=== PATIENT | male | born 1950 | race Caucasian/White ===

== ENCOUNTER → 2018-10-27 | Outpatient (CLI) | payer MEDICARE ==
--- NOTE | 2018-10-27 11:08 | XR ---
EXAMINATION TYPE: XR KUB DATE OF EXAM: 10/27/2018 10:41 AM CLINICAL HISTORY: Left-sided kidney stone for one month. TECHNIQUE: 2 supine KUB images of the abdomen are obtained. COMPARISON: None. FINDINGS: No definitive nephrolithiasis. Vascular calcification throughout the abdomen mimics renal c alculi. Scattered gas is seen in non-distended small bowel loops. Gas and fecal material is seen in non-diste nded colon. Vascular calcification overlies the mid to lower abdomen. There is elevated left hemidiap hragm with small left pleural effusion visualized osseous structures are intact. IMPRESSION: Poor visualization of nephrolithiasis. Consider CT.
== END | disposition home or self-care (01) ==
LOC: RADXRMAIN 10:25
PROVIDERS: ATTEND Urology
DX: N20.0 Calculus of kidney (principal)
CPT/HCPCS: 74018

== ENCOUNTER 2021-03-08 07:46 | Inpatient (IN) | payer MEDICARE ==
[2021-03-04 09:41] VITALS: BMI 22.6
[~2021-03-08 07:46] MED LIST: DEXAMETHASONE SOD PHOSPHATE 4 MG/ML 1 ML VIAL IV ONE; MIDAZOLAM 2 MG/2 ML VIAL IV PRN; ONDANSETRON 4 MG/2 ML VIAL IVP ONE; SODIUM CHLORIDE 0.9% 1,000 ML in EMPTY BAG 1 BAG IV ONE
[2021-03-08 08:52] LABS: African American GFR (CKD) >90 (>60 ml/min/1.73 sqM); Anion Gap 7 mmol/L; Blood Urea Nitrogen 15 mg/dL (9-20); Calcium 9.8 mg/dL (8.4-10.2); Carbon Dioxide 24 mmol/L (22-30); Chloride 108 mmol/L (98-107); Glucose 113 mg/dL (74-99); Non-African American GFR(CKD) >90 (>60 ml/min/1.73 sqM); Sodium 139 mmol/L (137-145)
[2021-03-08 09:00] LABS: Basophils % (A) 0 %; Eosinophils # (A) 0.1 k/uL (0-0.7); Eosinophils % (A) 1 %; HCT 49.7 % (39.0-53.0); HGB 16.3 gm/dL (13.0-17.5); Lymphocytes % (A) 13 %; MCH 35.7 pg (25.0-35.0); MCHC 32.8 g/dL (31.0-37.0); MCV 108.9 fL (80.0-100.0); Macrocytosis Marked; Mean Platelet Volume 8.7; Monocytes # (A) 0.8 k/uL (0-1.0); Monocytes % (A) 10 %; Neutrophils % (A) 75 %; Platelet Count 224 k/uL (150-450); RBC 4.57 m/uL (4.30-5.90); RDW 14.5 % (11.5-15.5); WBC 8.1 k/uL (3.8-10.6)
[2021-03-08] MEDS ORDERED: PROPOFOL 10 MG/ML 20 ML VIAL IV ONE (10:05)
[2021-03-08] MEDS ORDERED: SUCCINYLCHOLINE CHLORIDE 100 MG/5 ML SYR IV ONE (10:05)
[2021-03-08] MEDS ORDERED: LIDOCAINE 1% INJ 10MG/ML (20 ML MDV) ONE (10:05)
[2021-03-08] MEDS ORDERED: ROCURONIUM 10 MG/ML (5 ML VIAL) IV ONE (10:05)
[2021-03-08] MEDS ORDERED: MIDAZOLAM 2 MG/2 ML VIAL ONE (10:05)
[2021-03-08] MEDS ORDERED: fentaNYL (PF) 50 MCG/ML 2 ML AMP ONE (10:05)
[2021-03-08] MEDS ORDERED: LACTATED RINGERS 1,000 ML IV ONE (11:42)
[2021-03-08] MEDS ORDERED: IOPAMIDOL-250 100ML BTL INTRAARTER ONE (11:57)
[2021-03-08] MEDS ORDERED: IOPAMIDOL-250 50ML BTL INTRAARTER ONE (11:58)
--- NOTE | 2021-03-08 12:16 | P.OP ---
Description of Procedure: Date: 03/08/2021 Preoperative diagnosis: Asymptomatic Infrarenal 5.8 cm AAA Postoperative diagnosis: Same Procedure: 1. Percutaneous Endovascular aortic repair with Stuart device. 2. Ultrasound-guided bilateral common femoral artery access Surgeon: Saleem DUPONT Anesthesia: General Estimated blood loss: 50 mL Complications: None Condition: Stable Disposition: Multiphasic DP and PT signals Indications: 70-year-old gentleman with history of infrarenal AAA presents to the [facility] for endovascular aortic repair after his aneurysm has increased in size to 5.8 cm. Operative narrative: After written and informed consent was obtained from the patient all risks benefits and complications were described the patient was brought to the [facility] and laid in a supine position. The area of the groins were prepped and draped in usual sterile fashion after appropriate anesthetic was performed per the anesthesiologist. A timeout was performed in normal fashion and antibiotics were administered prior to incisions. Utilizing ultrasound bilateral common femoral arteries were visualized demonstrating patency with minimal calcification. Under ultrasound guidance utilizing a multipurpose needle bilateral common femoral arteries were accessed and guidewire was placed followed by deployment of 2 Perclose closure devices for each femoral artery. Utilizing Seldinger technique and 8-Panamanian sheath was then placed and patient was administered heparin and followed with ACTs. 035 Glidewire was then placed up the right femoral sheath and exchanged for a Lunderquist wire through an angled glide catheter. The left femoral artery was then utilized and guidewire was placed followed by pigtail catheter and aortogra m was obtained. Utilizing the Lunderquist wire a 26 mm main body device was then loaded over the guidewire after the 8-Panamanian sheath was removed. Delivery system was then placed 1 cm proximal to the intended landing site and the aortic body was oriented for appropriate access for the contralateral limb. Delivery system was then retracted out of the sheath and the aortic body radiopaque markers were verified to be in the correct position. First segment of the graft was then deployed in normal fashion by releasing and pulling the knob in normal fashion. Balloon injection port was then inflated utilizing a 4-1 saline contrast mixture in order to open the mid crown. Balloon was then deflated. Precise positioning was then performed with utilizing the radiopaque markers and parallax was removed and our to land at the renal arteries. Pigtail catheter was then retracted away from the proximal stent and the proximal stent was released in normal fashion. Polymer was then utilized and filled through the polymer port which was visualized under fluoroscopy. The stiff Lunderquist wire was then retracted within the ipsilateral limb. Attention was then placed to accessing the contralateral limb. Utilizing the Glidewire and angled glide catheter the contralateral limb was accessed and pigtail catheter was placed. Pigtail catheter was then spun to verify intragraft cannulation. A stiff wire was then placed within the pigtail catheter and retrograde angiogram was obtained demonstrating the internal iliac artery takeoff. Measurements were obtained and a 10 x 160 mm Ovation limb was chosen to be deployed and deployed in normal fashion. Once completed the aortic main body was completely deployed in normal fashion. Utilizing the balloon balloon angioplasty was performed at the ring to further mold the polymer to the aortic neck. Once completed the aortic body deployment sheath was removed in normal fashion. Pigtail catheter was then placed over the Lunderquist wire and retrograde angiogram was obtained with measurements to the internal iliac artery on the ipsilateral limb. A 10 x 140 mm Ovation limb was chosen and deployed in normal fashion. Once completed two 12 x 40mm balloons were placed up each iliac limb and balloon angioplasty was performed through its entirety. Once completed balloons were removed and pigtail catheter was placed above the graft and final angiogram was obtained demonstrating exclusion of the aneurysm with no evidence of type I or type III endoleak's. There was evidence of a type II endoleak coming from the distal lumbar at the bifurcation. Multiple angles were obtained as well as an angiogram through the graft demonstrating no evidence of a type I or type III proving a type II endoleak. All guidewires and catheters were then removed and the Perclose closure devices were closed in normal fashion. The right Perclose suture broke and therefore an 8-Panamanian Angio-Seal was utilized. The areas were then cleansed and dressings were placed. The patient tolerated procedure well and had multiphasic signal DP and PT and was sent to PACU for recovery.
[2021-03-08] MEDS: HYDROmorphone 0.5 MG/0.5 ML SYRINGE IVP PRN ×4 (12:31→13:40)
[2021-03-08 12:52] LABS: Basophils % (A) 0 %; Eosinophils # (A) 0.1 k/uL (0-0.7); Eosinophils % (A) 1 %; HCT 44.8 % (39.0-53.0); HGB 14.5 gm/dL (13.0-17.5); Lymphocytes # (A) 1.5 k/uL (1.0-4.8); Lymphocytes % (A) 15 %; MCH 35.3 pg (25.0-35.0); MCHC 32.5 g/dL (31.0-37.0); Macrocytosis Marked; Mean Platelet Volume 8.8; Monocytes # (A) 0.9 k/uL (0-1.0); Monocytes % (A) 9 %; Neutrophils # (A) 7.2 k/uL (1.3-7.7); Neutrophils % (A) 73 %; Platelet Count 215 k/uL (150-450); RBC 4.12 m/uL (4.30-5.90); RDW 14.5 % (11.5-15.5); WBC 9.9 k/uL (3.8-10.6)
[2021-03-08 13:00] LABS: MCV 108.6 fL (80.0-100.0)
[2021-03-08 13:41] LABS: African American GFR (CKD) >90 (>60 ml/min/1.73 sqM); Anion Gap 6 mmol/L; Blood Urea Nitrogen 14 mg/dL (9-20); Calcium 8.4 mg/dL (8.4-10.2); Carbon Dioxide 22 mmol/L (22-30); Chloride 111 mmol/L (98-107); Glucose 103 mg/dL (74-99); Non-African American GFR(CKD) >90 (>60 ml/min/1.73 sqM); Potassium 4.1 mmol/L (3.5-5.1); Sodium 139 mmol/L (137-145)
[2021-03-08] MEDS ORDERED: HYDROmorphone 1 MG/ML 1 ML SYRINGE ONE (15:56)
[2021-03-08] MEDS ORDERED: PANTOPRAZOLE 40 MG TABLET PO SCH (17:30)
--- NOTE | 2021-03-08 19:25 | P.CONS ---
History of Present Illness - Reason for Consult Consult date: 03/08/21 Medical management Requesting physician: Clint Monge - Chief Complaint AAA repair - History of Present Illness Consultation: This is a 70-year-old patient of Dr. Mcgill. Chronic stable medical conditions include BPH, GERD, hyperlipidemia, peptic ulcer disease kidney stones. During a workup for lung cancer he was discovered to have what AAA. Infrarenal 5.8 cm. Patient today has undergone percutaneous endovascular aortic repair with altered mental device. Estimated blood loss of 50 mL. Postprocedure sitting up in bed. Comfortable. No abdominal pain. Patient long-standing smoker. Denies any respiratory symptoms. No nausea vomiting. Review of systems: GEN.: None EYES: None HEENT: None NECK: None RESPIRATORY: None CARDIOVASCULAR: None GASTROINTESTINAL: Heartburn GENITOURINARY: Decreased urine flow MUSCULOSKELETAL: None LYMPHATICS: None HEMATOLOGICAL: None PSYCHIATRY: None NEUROLOGICAL: None Past medical history to include: GERD, hyperlipidemia, prostate disorder, peptic ulcer disease, 5.8 cm aortic aneurysm, kidney stones Social history: Has been smoking for 55 years up to 2 packs a day, now down to half a pack a day. No alcohol. Marijuana questionably. Lives with his brother Physical examination: VITAL SIGNS: 97, 52, 16, 1 25 x 55, 98% on 2 L GENERAL: BMI 21.4, sitting up in bed, comfortable. EYES: Pupils equal. Conjunctiva normal. HEENT: External appearance of nose and ears normal, oral cavity grossly normal. NECK: JVD not raised; masses not palpable. HEART: First and second heart sounds are normal; no edema. LUNGS: Respiratory rate normal; decreased breath sounds. ABDOMEN: Soft, nontender, liver spleen not palpable, no masses palpable. PSYCH: Alert and oriented x3; mood and affect normal. NEUROLOGICAL: Cranial nerves grossly intact; no facial asymmetry, power and sensation grossly intact. LYMPHATICS: No lymph nodes palpable in the axilla and neck INVESTIGATIONS, reviewed in the clinical context: WBC 9.9 hemoglobin 14.5 platelets 215 potassium 4.1 creatinine 0.6 Coronavirus [PCR]-not detected Assessment and plan: -Asymptomatic abdominal aortic aneurysm 5.8 cm repaired with an endovascular stent -GERD -Hyperlipidemia Continue Lipitor -BPH Continue Flomax -Kidney stones currently asymptomatic Follow clinically -Chronic nicotine dependence patient is a cigarette smoker Nicotine patch 14 g Care was discussed with the patient. Questions answered. When discharge patient should follow up with Dr. Mcgill Thank you Dr. 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", hx ulcers, aortic aneurysm, hx kidney stones History of Any Multi-Drug Resistant Organisms: None Reported Past Surgical History: Hernia Repair, Orthopedic Surgery, Tonsillectomy Additional Past Surgical History / Comment(s): SURGERY ON LT HAND- FINGERS(ACCIDENT WITH [employer]), TENDON REPAIR LT HAND, left carotid endar terectomy, Past Anesthesia/Blood Transfusion Reactions: Previous Problems w/ Anesthesia Additional Past Anesthesia/Blood Transfusion Reaction / Comm: fluctuating bp and heart rate post op after carotid surgery-ended up in ICU Smoking Status: Current every day smoker - Past Family History Mother Family Medical History: My[place] Infar[place] Additional Family Medical History / Comment(s): [place] Father Family Medical History: Myocardial Infarction ([place]) Additional Family Medical History / Comment(s): [facility] X 3- [facility] Medications and Allergies Home Medications Medication Instructions Recorded Confirmed Type Atorvastatin [Lipitor] 40 mg PO DAILY 12/11/15 03/08/21 History Clopidogrel [Plavix] 75 mg PO DAILY 12/11/15 03/04/21 History Omeprazole [PriLOSEC] 20 mg PO Q48H 12/11/15 03/08/21 History Multivitamins, Thera [Multivitamin 1 tab PO DAILY 03/04/21 03/08/21 History (formulary)] Tamsulosin [Flomax] 0.4 mg PO Q48H 03/04/21 03/08/21 History Allergies Allergy/AdvReac Type Severity Reaction Status Date / Time aspirin AdvReac GETS Verified 03/04/21 09:22 REFLUX AND GI BLEEDING Physical Exam Vitals: Vital Signs Temp Pulse Resp BP BP Pulse Ox 03/08/21 15:50 70 16 138/70 95 03/08/21 15:35 50 L 16 131/61 100 03/08/21 15:00 48 L 16 130/65 99 03/08/21 14:30 61 16 122/66 96 03/08/21 14:15 52 L 16 125/55 98 03/08/21 14:00 59 L 16 123/66 97 03/08/21 13:45 61 16 133/58 96 03/08/21 13:29 67 16 129/61 97 03/08/21 13:19 60 16 119/64 95 03/08/21 12:59 64 16 148/79 94 L 03/08/21 12:47 72 16 148/76 93 L 03/08/21 12:33 76 16 164/85 94 L 03/08/21 12:12 97.0 F L 86 16 144/80 100 03/08/21 08:36 97.9 F 18 119/69 96 Intake and Output 03/08/21 03/08/21 03/08/21 06:59 14:59 22:59 Intake Total 1125 725 Output Total 200 690 Balance 925 35 Intake: IV 1125 500 Intake, IV Titration 225 Amount Sodium Chloride 0.9% 1, 225 000 ml @ 100 mls/hr IV . Q10H MIK Rx#:[id number] Output: Urine 200 450 Urine/Stool Mix 240 Other: Weight 60.2 kg Results CBC & Chem 7: 03/08/21 12:31 03/08/21 13:09 Labs: Abnormal Lab Results - Last 24 Hours (Table) 03/08/21 03/08/21 03/08/21 Range/Units 08:20 08:20 12:31 RBC 4.12 L (4.30-5.90) m/uL MCV 108.9 H 108.6 H (80.0-100.0) fL MCH 35.7 H 35.3 H (25.0-35.0) pg Macrocytosis Marked A Marked A Chloride 108 H (98-107) mmol/L Creatinine 0.64 L (0.66-1.25) mg/dL Glucose 113 H (74-99) mg/dL 03/08/21 Range/Units 13:09 RBC (4.30-5.90) m/uL MCV (80.0-100.0) fL MCH (25.0-35.0) pg Macrocytosis Chloride 111 H (98-107) mmol/L Creatinine 0.60 L (0.66-1.25) mg/dL Glucose 103 H (74-99) mg/dL
[2021-03-08] MEDS: SODIUM CHLORIDE 0.9% 1,000 ML IV SCH ×2 (19:27→20:22)
[2021-03-08] MEDS: LACTATED RINGERS 1,000 ML IV SCH (19:27)
[2021-03-08] MEDS: NICOTINE 14MG/24HR PATCH TRANSDERM SCH (20:22)
[2021-03-08] MEDS ORDERED: PRAVASTATIN SODIUM 40 MG TAB PO SCH (21:00)
[2021-03-08] MEDS: HYDROcodone/APAP 5-325MG 1 EACH TAB PO PRN (22:11)
[2021-03-09] MEDS: HYDROcodone/APAP 5-325MG 1 EACH TAB PO PRN (03:43)
[2021-03-09] MEDS: SODIUM CHLORIDE 0.9% 1,000 ML IV SCH (03:49)
[2021-03-09 04:31] VITALS: RESP 18
[2021-03-09] MEDS: LACTATED RINGERS 1,000 ML IV SCH (06:07)
[2021-03-09] MEDS ORDERED: TAMSULOSIN 0.4 MG CAP.ER.24H PO SCH (07:30)
[2021-03-09] MEDS: NICOTINE 14MG/24HR PATCH TRANSDERM SCH (07:57)
[2021-03-09] MEDS ORDERED: MULTIVITAMINS, THERA 1 EACH TAB PO SCH (09:00)
[2021-03-09] MEDS ORDERED: ATORVASTATIN 40 MG TAB PO SCH (09:00)
[2021-03-09] MEDS ORDERED: CLOPIDOGREL 75 MG TAB PO SCH (09:00)
[2021-03-09 10:13] VITALS: BP 117/58; PULSE 94; TEMP 98.2
--- NOTE | 2021-03-09 10:29 | P.DS ---
Providers Date of admission: 03/08/21 07:46 Attending physician: Clint Monge DO Consults: 03/08/21 05:55 Consult to Anesthesia Routine Consulting Provider: Anesthesia,Services Consult Reason/Comments: General anesthesia for Aortic Stent procedure 03/08/21 13:03 Consult Physician Routine Consulting Provider: Marc Ferrara Consult Reason/Comments: medical management Do you want consulting provider notified?: Yes Primary care physician: [facility] Course: Patient is a 70-year-old male who presented to the hospital on an outpatient basis for a abdominal aortic aneurysm repair that was performed on 03/08/2021. He tolerated the procedure well and is doing very well postoperatively. His vital signs have remained stable. He Armstrong catheter was removed and he is urinating on his own since. He denies any pains, nausea, vomiting or issues otherwise. He appears to be in satisfactory condition for discharge home. Discharge instructions were given and the patient verbalized understanding. He will follow up with his operative surgeon in 10 to 14 days Plan - Discharge Summary Discharge Rx Participant: Yes New Discharge Prescriptions: New Nicotine 14Mg/24Hr Patch [Habitrol] 1 patch TRANSDERM DAILY #14 patch Continue Omeprazole [PriLOSEC] 20 mg PO Q48H Clopidogrel [Plavix] 75 mg PO DAILY Atorvastatin [Lipitor] 40 mg PO DAILY Tamsulosin [Flomax] 0.4 mg PO Q48H Multivitamins, Thera [Multivitamin (formulary)] 1 tab PO DAILY Discharge Medication List Atorvastatin [Lipitor] 40 mg PO DAILY 12/11/15 [History] Clopidogrel [Plavix] 75 mg PO DAILY 12/11/15 [History] Omeprazole [PriLOSEC] 20 mg PO Q48H 12/11/15 [History] Multivitamins, Thera [Multivitamin (formulary)] 1 tab PO DAILY 03/04/21 [History] Tamsulosin [Flomax] 0.4 mg PO Q48H 03/04/21 [History] Nicotine 14Mg/24Hr Patch [Habitrol] 1 patch TRANSDERM DAILY #14 patch 03/09/21 [Rx] Follow up Appointment(s)/Referral(s): Pineda Mcgill MD [Primary Care Provider] - 1 Week Activity/Diet/Wound Care/Special Instructions: Resume regular activity without heavy lifting. Resume regular diet. Resume home medications. May shower starting tomorrow. Follow-up in 10-14 days Discharge Disposition: HOME SELF-CARE
--- NOTE | 2021-03-09 14:35 | P.PN ---
Progress Note - Text Progress Note Date: 03/09/21 - Chief Complaint AAA repair Consultation: This is a 70-year-old patient of Dr. Mcgill. Chronic stable medical conditions include BPH, GERD, hyperlipidemia, peptic ulcer disease kidney stones. During a workup for lung cancer he was discovered to have what AAA. Infrarenal 5.8 cm. Patient today has undergone percutaneous endovascular aortic repair with altered mental device. Estimated blood loss of 50 mL. Today: Laying in bed. Has been up to the bathroom. No abdominal pain. Good oral intake. No chest pain or shortness of breath. Review of systems: Was done for constitutional, cardiovascular, GI, pulmonary. relevant finding as above Current medications reviewed in today's electronic records Past medical history to include: GERD, hyperlipidemia, prostate disorder, peptic ulcer disease, 5.8 cm aortic aneurysm, kidney stones Social history: Has been smoking for 55 years up to 2 packs a day, now down to half a pack a day. No alcohol. Marijuana questionably. Lives with his brother Physical examination: VITAL SIGNS: 98.2, 94, 18, 117/58, 92% room air GENERAL: BMI 22.2, laying in bed, comfortable EYES: Pupils equal. Conjunctiva normal. HEENT: External appearance of nose and ears normal, oral cavity grossly normal. NECK: JVD not raised; masses not palpable. HEART: First and second heart sounds are normal; no edema. LUNGS: Respiratory rate normal; decreased breath sounds. ABDOMEN: Soft, nontender, liver spleen not palpable, no masses palpable. PSYCH: Alert and oriented x3; mood and affect normal. INVESTIGATIONS, reviewed in the clinical context: WBC 9.9 hemoglobin 14.5 platelets 215 potassium 4.1 creatinine 0.6 Coronavirus [PCR]-not detected Assessment and plan: -Asymptomatic abdominal aortic aneurysm 5.8 cm repaired with an endovascular stent Stable -GERD On Prilosec -Hyperlipidemia Continue Lipitor -BPH Continue Flomax -Kidney stones currently asymptomatic Follow clinically -Chronic nicotine dependence patient is a cigarette smoker Nicotine patch 14 g Smoking cessation discussed with the patient. We discharged on nicotine patch. Follow-up with Dr. Mcgill Thank you Dr. Monge
--- NOTE | 2021-03-11 14:47 | IR ---
Fluoroscopy HISTORY: Abdominal aortic aneurysm 18.2 minutes fluoroscopy time supplied to the referring clinician. 785 intraoperative C-arm images d ocument the procedure. See dictated report from vascular surgery.
== END 2021-03-09 12:39 | disposition home or self-care (01) | DRG 269 ==
LOC: 2ORMAIN 07:46 → 3SCARD 16:16
PROVIDERS: ADMIT Surgery; ATTEND Surgery
PROC: 04V03EZ Restriction of Abdominal Aorta with Branched or Fenestrated Intraluminal Device, One or Two Arteries, Percutaneous Approach (ICD-10-PCS; principal; 2021-03-08 10:00)
DX: I71.4 Abdominal aortic aneurysm, without rupture (principal); I97.89 Other postprocedural complications and disorders of the circulatory system, not elsewhere classified; E78.2 Mixed hyperlipidemia; I73.9 Peripheral vascular disease, unspecified; I25.118 Atherosclerotic heart disease of native coronary artery with other forms of angina pectoris; Z20.822 Contact with and (suspected) exposure to COVID-19; I35.0 Nonrheumatic aortic (valve) stenosis; N40.0 Benign prostatic hyperplasia without lower urinary tract symptoms; K21.9 Gastro-esophageal reflux disease without esophagitis; F17.210 Nicotine dependence, cigarettes, uncomplicated; Z71.6 Tobacco abuse counseling; Z79.02 Long term (current) use of antithrombotics/antiplatelets; Z79.899 Other long term (current) drug therapy; Z87.11 Personal history of peptic ulcer disease; Z87.442 Personal history of urinary calculi; Z86.79 Personal history of other diseases of the circulatory system; Z87.39 Personal history of other diseases of the musculoskeletal system and connective tissue; Z90.89 Acquired absence of other organs; Z87.19 Personal history of other diseases of the digestive system; Z98.890 Other specified postprocedural states; Z88.6 Allergy status to analgesic agent; Y83.2 Surgical operation with anastomosis, bypass or graft as the cause of abnormal reaction of the patient, or of later complication, without mention of misadventure at the time of the procedure; Y92.234 Operating room of hospital as the place of occurrence of the external cause; Z82.49 Family history of ischemic heart disease and other diseases of the circulatory system
CPT/HCPCS: 34705; 80048; 85025; 86850; 86900; 86901; 87635